=== PATIENT | male | born 1975 | race Caucasian/White ===

== ENCOUNTER 2020-09-29 03:38 | Emergency (ER) | payer OTHER ==
[~2020-09-29] VITALS: Ht 185.4 cm; Wt 90.7 kg
[2020-09-29 04:29] VITALS: BP 133/88
== END 2020-09-29 04:30 | disposition home or self-care (01) ==
LOC: M.ERS 03:38
DX: U07.1 COVID-19 (principal); F15.90 Other stimulant use, unspecified, uncomplicated; Z86.14 Personal history of Methicillin resistant Staphylococcus aureus infection; Z88.1 Allergy status to other antibiotic agents; Z88.5 Allergy status to narcotic agent